=== PATIENT | female | born 1985 | race Hispanic/Latino ===

== ENCOUNTER 2023-12-17 23:23 | Inpatient (IN) | payer BC ==
[~2023-12-17] VITALS: Ht 160 cm; Wt 83.0 kg
[~2023-12-17 23:23] MED LIST: DOCU-116 PO; ESOM40CA PO; FERR-52 PO; IBUP-1493 PO; PREN1TAB80 PO
[2023-12-17 23:45] LABS: APPEARANCE,URINE CLEAR (CLEAR); BILIRUBIN,URINE NEGATIVE (NEGATIVE); COLOR,URINE COLORLESS (YELLOW); GLUCOSE, URINE (UA) NEGATIVE (NEGATIVE); KETONES,URINE 40 mg/dL (NEGATIVE); LEUKOCYTE ESTERASE ,URINE NEGATIVE Leu/uL (NEGATIVE); NITRATE,URINE NEGATIVE (NEGATIVE); OCCULT BLOOD,URINE NEGATIVE (NEGATIVE); PH,URINE 5.5 (5.0-8.0); PROTEIN,URINE NEGATIVE (NEGATIVE); UROBILINOGEN,URINE 0.2 mg/dL (0.2-1.0)
[2023-12-17 23:52] LABS: ADD UA MICROSCOPIC YES
[2023-12-17 23:53] LABS: SQUAMOUS EPITHELIAL CELL,UR RARE /HPF (0-2); WBC,URINE 0-1 /HPF (0-1)
[2023-12-18] VITALS (8 sets, daily range): BP systolic 97–108; BP diastolic 53–68; PULSE 62–76; RESP 17–20
[2023-12-18 00:39] LABS: HEMATOCRIT 30.6 % (36-48); MEAN CORPUSCULAR HEMOGLOBIN 26.4 pg (27.0-33.0); MEAN CORPUSCULAR HGB CONC 31.7 g/dL (32.0-36.0); MEAN CORPUSCULAR VOLUME 83.2 fL (79-99); RED BLOOD CELL COUNT(AUTO) 3.68 MIL/uL (4.00-5.50); RED CELL DISTRIBUTION WIDTH 14.2 % (11.0-15.5); WHITE BLOOD COUNT (AUTO) 8.3 K/uL (4.8-10.8)
[2023-12-18] MEDS: LACTATED RINGERS 1000ML 1,000 ML IV PRN (01:19)
[2023-12-18 01:24] LABS: HIV 1&2 ANTIBODY Non-Reactive (Negative)
[2023-12-18 01:25] LABS: HIV-1 p24 Antigen Non-Reactive (Negative)
[2023-12-18] MEDS ORDERED: LACTATED RINGERS 1000ML IV SCH (01:30)
[2023-12-18] MEDS ORDERED: OXYTOCIN-LR 30 UNITS/500ML 500 ML IV SCH (01:30)
[2023-12-18] MEDS ORDERED: CEFAZOLIN SODIUM 1 GM VIAL ONE ×2 (02:15→02:50)
[2023-12-18] MEDS ORDERED: PHENYLEPHRINE HCL 10 MG/ML 1ML VIAL IV ONE (02:29)
[2023-12-18] MEDS ORDERED: OXYTOCIN 10 UNIT/1ML 10ML VIAL ONE (02:29)
[2023-12-18] MEDS ORDERED: ONDANSETRON 4MG INJ ONE (02:29)
[2023-12-18] MEDS ORDERED: DEXAMETHASONE SOD PHOSPHATE 10MG/ML 1ML VIAL ONE (02:29)
[2023-12-18] MEDS ORDERED: FENTANYL CITRATE PF 50 MCG/1 ML 2ML VIAL ONE (02:29)
[2023-12-18] MEDS ORDERED: MORPHINE PF 100MG/10ML AMP IV ONE (02:30)
[2023-12-18] MEDS ORDERED: LACTATED RINGERS 1000ML 1,000 ML IV SCH (02:30)
[2023-12-18] MEDS ORDERED: DEXTROSE 5 %-0.45 % NACL 1,000 ML IV PRN (03:30)
[2023-12-18] MEDS ORDERED: 0.9%NACL 10ML VIAL IVP PRN ×2 (03:30→21:30)
[2023-12-18] MEDS ORDERED: MEPERIDINE-PF 75 MG/ML SYG IM PRN (03:30)
[2023-12-18] MEDS ORDERED: OXYTOCIN-LR 30 UNITS/500ML 500 ML IV PRN (03:30)
[2023-12-18] MEDS: CEFAZOLIN SODIUM 1 GM VIAL IVPB PRN (04:41)
[2023-12-18] MEDS: CALDOLOR 800MG+NS 250ML 250 ML IV SCH (06:05)
[2023-12-18 07:27] LABS: RAPID PLASMA REAGIN NONREACTIVE (NONREACTIVE)
[2023-12-18] MEDS ORDERED: ONDANSETRON 4MG INJ IVP PRN (11:15)
[2023-12-18] MEDS: ONDANSETRON 4MG INJ ONE (11:23)
[2023-12-18] MEDS: PROMETHAZINE HCL 25 MG/ML 1ML AMPULE IM PRN (11:24)
[2023-12-18] MEDS ORDERED: CALDOLOR 800MG+NS 250ML 250 ML IV SCH (11:30)
[2023-12-18] MEDS ORDERED: LANOLIN 30GM OINTMENT TP PRN (21:30)
[2023-12-18] MEDS ORDERED: IBUPROFEN 600 MG TABLET PO PRN (21:30)
[2023-12-18] MEDS ORDERED: BISACODYL 10 MG SUPP.RECT RC PRN (21:30)
[2023-12-19] MEDS: ACETAMINOPHEN 500 MG TABLET PO PRN (01:03)
[2023-12-19] MEDS: HYDROCODONE/ACETAMINOPHEN 5/325 MG TAB PO PRN (02:03)
[2023-12-19] MEDS: SIMETHICONE 80 MG TAB.CHEW PO PRN (02:04)
[2023-12-19] MEDS: IBUPROFEN 800 MG TAB PO SCH (02:59)
[2023-12-19 03:57] VITALS: BP 92/54; PULSE 88; RESP 20
[2023-12-19 04:00] VITALS: BP 92/54; PULSE 88; RESP 20
[2023-12-19] MEDS: ACETAMINOPHEN WITH CODEINE 1 TAB TAB PO PRN (04:16)
[2023-12-19 06:47] LABS: HEMATOCRIT 27.4 % (36-48); MEAN CORPUSCULAR HEMOGLOBIN 26.9 pg (27.0-33.0); MEAN CORPUSCULAR HGB CONC 31.8 g/dL (32.0-36.0); MEAN CORPUSCULAR VOLUME 84.8 fL (79-99); RED BLOOD CELL COUNT(AUTO) 3.23 MIL/uL (4.00-5.50); RED CELL DISTRIBUTION WIDTH 14.3 % (11.0-15.5); WHITE BLOOD COUNT (AUTO) 7.8 K/uL (4.8-10.8)
[2023-12-19 08:00] VITALS: BP 108/63; PULSE 75; RESP 17
[2023-12-19] MEDS: DOCUSATE SODIUM 100 MG CAP PO SCH (08:38)
[2023-12-19 12:00] VITALS: BP 97/62; PULSE 75; RESP 16
[2023-12-19 16:15] VITALS: BP 118/70; PULSE 82; RESP 14
== END 2023-12-19 19:08 | disposition home or self-care (01) | DRG 788 ==
LOC: EDH 23:23 → OBSVTOIN 23:24 → LDH 23:24 → WSH 12-18 08:23
PROVIDERS: ADMIT Obstetrics & Gynecology; ATTEND Obstetrics & Gynecology
PROC: 10D00Z1 Extraction of Products of Conception, Low, Open Approach (ICD-10-PCS; principal; 2023-12-18 02:15)
DX: O77.9 Labor and delivery complicated by fetal stress, unspecified (principal); O99.02 Anemia complicating childbirth; Z37.0 Single live birth; Z3A.39 39 weeks gestation of pregnancy
CPT/HCPCS: 36415; 59510; 81001; 85027; 86592; 86701; 86850; 86900; 86901; 87340; 87390; A4344; G0378; J0690; J1100; J1741; J2274; J2371; J2405; J2550; J2590; J3010; J7120; A4248; C1765